=== PATIENT | male | born 1950 | race African-American/Black ===

== ENCOUNTER → 2017-04-26 | Day surgery (SDC) | payer BC, OTHER, MEDICARE ==
[~2017-04-26] MED LIST: ESOM40CA PO; HYDR-2758 PO; HYDROmorphone 2 MG/ML VIAL IV PRN; IV RINGERS,LACTATED 1000ML 1,000 ML IV SCH; LEVO150T5 PO; LEVO75TA PO; LIDOCAINE 1% PF 2 ML VIAL. ID PRN; LIDOCAINE 2% PF Vial for OR 5 ML VIAL. ONE; LOSA1TAB19 PO; MORPHINE SULFATE 2 MG/ML DISP.SYRIN. IV PRN; ONDANSETRON PF 4 MG/2 ML VIAL. IV PRN; PHEN100C PO; PROCHLORPERAZINE 10 MG/2 ML VIAL. IV PRN; PROPOFOL 20 ML IV ONE; TAMS0.4C2 PO; fentaNYL PF VIAL 100 MCG/2 ML VIAL IV PRN
--- NOTE | 2017-04-26 08:17 | PDOC1 ---
HISTORY & PHYSICAL H&P Luis Barahona [id number] 1950 04/03/2017 01:30 PM 07/08 [employer] [facility], [facility] OUR PATIENTS COME FIRST [address] [place] [address]. [phone] Patient: Luis Barahona Date of : 1950 Date: 04/03/2017 1:30 PM Visit Type: Consult This 66 year old male presents for Colitis and H/o colorectal polyp. History of Present Illness: 1. Colitis Patient had proctitis last evaluation and has been doing well. No rectal bleeding. No urgency of bowel evacuation. 2. H/o colorectal polyp Prior screening: colonoscopy. Risk Factors: h/o colon polyp. Pertinent negatives include abdominal pain, change in bowel habits, change in stool caliber, constipation, decreased appetite, diarrhea, melena, nausea, rectal bleeding, vomiting, weight gain and weight loss. Additional information: No family history of colon cancer, No family history of Crohn's/colitis and No NSAID/ASA use. INTAKE COMMENTS: Intake Comments: Nurse Note: the pt is here today to repeat a colonoscopy due to colitis, his last colonoscopy was in 2011. PROBLEM LIST: Problem Description Onset Date Essential hypertension 05/30/2015 Seizure 06/22/2009 Hypothyroidism 06/22/2009 Gastroesophageal reflux disease 06/22/2009 Diverticular disease of colon 06/22/2009 Residual hemorrhoidal skin tags 06/22/2009 Dyspepsia 06/22/2009 Physical exam 03/28/2016 Prostatism 05/30/2015 Primary osteoarthritis of both knees 12/22/2015 PAST MEDICAL/SURGICAL HISTORY (Detailed) Disease/disorder Onset Date Management Date Comments Abnormal EKG Colitis 04/03/2012 Diverticulosis GERD Hemorrhoids Hypothyroidism, primary PAD Proctitis 04/03/2012 colonoscopy with biopsy 04/03/2012 Seizure disorder DIAGNOSTICS HISTORY: Test Ordered Interpretation Result completed COLONOSCOPY AND BIOPSY 12/05/2011 abnormal Imp: Proctitis(bx) BX: Focal active colitis 04/03/2012 EGD 02/04/2013 abnormal Imp: grade ll Erosive esophagitis, 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 01/01/2017 hydrocodone 5 mg-acetaminophen 325 mg tablet take 1 tablet by oral route 2 times every day as needed for pain 01/01/2017 levothyroxine 150 mcg tablet TAKE 1 TABLET BY MOUTH ONCE DAILY FOR LOW THYROID. 03/22/2017 losartan 50 mg-hydrochlorothiazide 12.5 mg tablet TAKE [1] TABLET BY MOUTH ONCE DAILY 01/01/2017 Nexium 40 mg capsule,delayed release take 1 capsule (40MG) by oral route every day 12/05/2011 [place]-3 Fish Oil 1,000 mg-5 unit Cap take 1 Capsule by Oral route every day 01/01/2017 tamsulosin 0.4 mg capsule take 1 capsule by oral route every day 1/ 2 hour following the same meal each day Allergies: Ingredient Reaction Medication Name Comment NO KNOWN ALLERGIES REVIEW OF SYSTEMS System Neg/Pos Details Constitutional Negative Chills, fever, malaise, weight gain and weight loss. ENMT Negative Sore throat. Eyes Negative Double vision. Respiratory Negative Dyspnea and wheezing. Cardio Negative Chest pain and irregular heartbeat/palpitations. GI Positive See HPI. GI Negative Abdominal pain, change in bowel habits, change in stool caliber, constipation, decreased appetite, diarrhea, melena, nausea, see HPI, rectal bleeding and vomiting. Negative Dysuria and hematuria. Endocrine Negative Cold intolerance and heat intolerance. Psych Negative Anxiety. Integumentary Negative Hives and rash. MS Negative Joint pain. Bryson/Lymph Negative Easy bleeding and easy bruising. Allergic/Immuno Negative Animals at home and food allergies. VITAL SIGNS Time BP mm/Hg Pulse /min Resp /min Temp F Ht ft Ht in Ht cm Wt lb Wt kg BMI kg/ m2 BSA m2 O2 Sat% 1:17 PM 99 98.0 0.0 74.00 187.96 180.20 81.737 23.14 96 Time Measured by 1:17 PM Amelia Vail PHYSICAL EXAM: Exam Findings Details Constitutional Normal Well developed. Eyes Normal Conjunctiva - Right: Normal, Left: Normal. Sclera - Right: Normal, Left: Normal. Nasopharynx Normal Lips/teeth/gums - Normal. Neck Exam Normal Inspection - Normal. Thyroid gland - Normal. Respiratory Normal Inspection - Normal. Auscultation - Normal. Cardiovascular Normal Regular rate and rhythm. No murmurs, gallops, or rubs. Vascular Normal Pulses - Carotids: Normal, Femoral: Normal, Dorsalis pedis: Normal. Abdomen Normal Inspection - Normal. Anterior palpation - No guarding. No abdominal tenderness. No hepatic enlargement. No splenic enlargement. No hernia. No ascites. Skin Normal Inspection - Normal. Extremity Normal No edema. Psychiatric * Oriented to time, place, person and situation. Psychiatric Normal Appropriate mood and effect. Assessment/Plan # Detail Type Description 1. Assessment Colitis (K52.9). Patient Plan await colonoscopy result. Asymptomatic at present. 2. Assessment History of colon polyps (Z86.010). Patient Plan schedule colonoscopy at Plan Orders Further diagnostic evaluations ordered today include(s) Colonoscopy to be performed today. He is to schedule a follow-up visit with Yamileth Brower MD upon completion of work-up Electronically signed by: Yamileth Brower MD 04/03/2017 01:43 PM Document generated by: Yamileth Brower 04/03/2017 01:43 PM Oswaldo Monroy MD, Family Practice; Kiet Elizabeth MD Internal Medicine; Melany Correa MD, Internal Medicine; Rachael Brower MD Internal Medicine; Yamileth Brower MD, Gastroenterology; Andrew Crowell MD, Rheumatology, S. Quique Perry, Physical Medicine/Rehab Justo Kidd APRN ------ 10/20/17 Patient seen and examined. No change in H&P. YAMILETH BROWER MD Apr 26, 2017 08:17
[2017-04-26 09:47] VITALS: BP 129/73
== END | disposition home or self-care (01) ==
LOC: ENDOS 08:11
PROVIDERS: ATTEND Internal Medicine Gastroenterology
DX: Z09 Encounter for follow-up examination after completed treatment for conditions other than malignant neoplasm (principal); Z87.19 Personal history of other diseases of the digestive system; K64.0 First degree hemorrhoids; M19.91 Primary osteoarthritis, unspecified site; E03.9 Hypothyroidism, unspecified; Z86.69 Personal history of other diseases of the nervous system and sense organs; Z87.39 Personal history of other diseases of the musculoskeletal system and connective tissue; Z86.39 Personal history of other endocrine, nutritional and metabolic disease; Z72.89 Other problems related to lifestyle
CPT/HCPCS: 45378; J2704; J2001

== ENCOUNTER → 2017-12-17 | Day surgery (SDC) | payer BC, OTHER, MEDICARE ==
[~2017-12-17] MED LIST changes: -ESOM40CA PO; -HYDR-2758 PO; -HYDROmorphone 2 MG/ML VIAL IV PRN; -IV RINGERS,LACTATED 1000ML 1,000 ML IV SCH; -LEVO150T5 PO; -LEVO75TA PO; -LIDOCAINE 1% PF 2 ML VIAL. ID PRN; +LIDOCAINE 2% PF Vial for OR 5 ML VIAL.; -LIDOCAINE 2% PF Vial for OR 5 ML VIAL. ONE; -LOSA1TAB19 PO; -MORPHINE SULFATE 2 MG/ML DISP.SYRIN. IV PRN; -ONDANSETRON PF 4 MG/2 ML VIAL. IV PRN; -PHEN100C PO; -PROCHLORPERAZINE 10 MG/2 ML VIAL. IV PRN; +PROPOFOL 20 ML IV; -PROPOFOL 20 ML IV ONE; -TAMS0.4C2 PO; -fentaNYL PF VIAL 100 MCG/2 ML VIAL IV PRN
[2017-12-17] MEDS: IV RINGERS,LACTATED 1000ML 1,000 ML IV (07:00)
== END ==
LOC: ENDOS 09:10
DX: K21.0 Gastro-esophageal reflux disease with esophagitis (principal); K22.2 Esophageal obstruction; K44.9 Diaphragmatic hernia without obstruction or gangrene; I10 Essential (primary) hypertension; E03.9 Hypothyroidism, unspecified; I73.9 Peripheral vascular disease, unspecified; M17.0 Bilateral primary osteoarthritis of knee; F99 Mental disorder, not otherwise specified; Z79.82 Long term (current) use of aspirin; Z79.899 Other long term (current) drug therapy; Z79.891 Long term (current) use of opiate analgesic; Z98.890 Other specified postprocedural states
CPT/HCPCS: 43239; 88305; J2704

== ENCOUNTER 2019-02-10 19:52 | Emergency (ER) | payer BC, OTHER ==
[~2019-02-10] VITALS: Ht 188 cm; Wt 80.3 kg
[~2019-02-10 19:52] MED LIST changes: +ASPI-630 PO; +ESOM40CA PO; +HYDR-2761 PO; +LEVO150T5 PO; +LEVO75TA PO; -LIDOCAINE 2% PF Vial for OR 5 ML VIAL.; +LOSA1TAB19 PO; +PHEN100C PO; -PROPOFOL 20 ML IV; +TAMS0.4C2 PO
[2019-02-10 20:19] VITALS: BP 129/80
[2019-02-10] MEDS ORDERED: AMOX1TAB61 PO (21:22)
--- NOTE | 2019-02-10 21:22 | PHYS DOC ---
Past Medical History Past Medical History: GERD, Hypothyroid, Seizure (MARYCRUZ MARCELINO APRN) Past Surgical History: Other Additional Past Surgical Histo: Right hip repair (MARYCRUZ MARCELINO APRN) Alcohol Use: Heavy Drug Use: None (MARYCRUZ MARCELINO APRN) Adult General Chief Complaint Chief Complaint: ANIMAL BITE HPI HPI Patient is a 68 year old AA male who presents to the emergency department with complaints of a dog bite to his left thigh. Patient states that the animal was picked up by animal control. He denies any numbness, or tingling of the left thigh. He is unsure when his last tetanus shot was. Currently he complains of pain at the bite site that he rates a 9 out of 10 on the pain scale, there are no alleviating or exacerbating factors. ROS Patient denies any fever, cough, nausea, vomiting, diarrhea, abdominal pain, shortness of breath, or wheezing. He denies any swelling of lower extremities. All other ROS is neg unless otherwise noted in HPI. (MARYCRUZ MARCELINO APRN) Review of Systems Review of Systems See Above (MARYCRUZ MARCELINO APRN) Current Medications Current Medications Current Medications Medications (Trade) Dose Ordered Sig/Dylan Start Time Stop Time Status Last Admin Dose Admin Diphtheria/ Tetanus/Acell Pertussis (Boostrix) 0.5 ml ONCE ONCE 02/10/19 22:00 02/10/19 21:35 DC 02/10/19 21:30 0.5 ML Neomycin/ Polymyxin/ Bacitracin (Triple Antibiotic Ointment) 1 pkt 1X ONCE 02/10/19 22:00 02/10/19 21:35 DC 02/10/19 21:30 1 PKT (TANJA DASILVA DO) Allergies Allergies Allergies Coded Allergies Type Severity Reaction Last Updated Verified No Known Drug Allergies 12/17/17 No (TANJA DASILVA DO) Physical Exam Physical Exam See Above Constitutional: Well developed, well nourished, no acute distress, non-toxic appearance. [] HENT: Normocephalic, atraumatic, bilateral external ears normal, nose normal. [] Eyes: conjunctiva normal, no discharge. [] Neck: Normal range of motion, no stridor. [] Lungs & Thorax: Respirations even and unlabored, no retractions, no respiratory distress Skin: Warm, dry, no erythema, no rash; superficial puncture wound to left thigh with surrounding bruising, consistent with a bite. [] Extremities: No cyanosis, ROM intact, no edema. [] Neurologic: Alert and oriented X 3, normal motor function, normal sensory function, no focal deficits noted. [] Psychologic: Affect normal, judgement normal, mood normal. [] (MARYCRUZ MARCELINO APRN) Current Patient Data Vital Signs Vital Signs Date Time Temp Pulse Resp B/P (MAP) Pulse Ox O2 Delivery O2 Flow Rate FiO2 02/10/19 20:19 99.4 89 16 129/80 (96) 96 Room Air 99.4 (TANJA DASILVA DO) EKG EKG [] (MARYCRUZ MARCELINO APRN) Radiology/Procedures Radiology/Procedures [] (MARYCRUZ MARCELINO APRN) Course & Med Decision Making Course & Med Decision Making Pertinent Labs and Imaging studies reviewed. (See chart for details) [] (MARYCRUZ MARCELINO APRN) Dragon Disclaimer Dragon Disclaimer This electronic medical record was generated, in whole or in part, using a voice recognition dictation system. (MARYCRUZ MARCELINO APRN) Departure Departure Impression: Primary Impression: Dog bite of left thigh without complication Additional Impression: Need for Tdap vaccination Disposition: 01 HOME, SELF-CARE Condition: STABLE Referrals: DARREN GEORGE (PCP) Patient Instructions: Animal Bite, [id number] Additional Instructions: Fill the prescription and take as directed. Tylenol or ibuprofen as needed for pain. Apply ice to the area for relief of pain as well. Follow-up with your primary care doctor if symptoms persist, return to the ER if symptoms worsen or if you develop fever, redness, warmth, or drainage from the site. Scripts Amoxicillin/Potassium Clav (AUGMENTIN 875-125 TABLET) 1 Each Tablet 1 TAB PO BID for 7 Days, #14 TAB 0 Refills Prov: MARYCRUZ MARCELINO APRN 02/10/19 Attending Signature Attending Signature I have reviewed the PA/ORTHOPEDICS NURSE's note and plan of care. I was available for consultation as needed during the patient's visit in the emergency department. I agree with the clinical impression, plan, and disposition. (TANJA DASILVA DO) Problem Qualifiers Primary Impression: Dog bite of left thigh without complication Encounter type: initial encounter Qualified Codes: S71.152A - Open bite, left thigh, initial encounter; W54.0XXA - Bitten by dog, initial encounter MARYCRUZ MARCELINO APRN Feb 10, 2019 21:22 TANJA DASILVA DO Feb 11, 2019 18:16
[2019-02-10] MEDS ORDERED: NEOMY/BACITR/POLYMYXIN OINT PACKET. TP ONE (22:00)
[2019-02-10] MEDS ORDERED: DIPHTH,PERTUSS(ACELL),TET TOX 0.5 ML DISP.SYRIN. VAX IM ONE (22:00)
== END 2019-02-10 21:34 | disposition home or self-care (01) ==
LOC: ER 19:52
DX: S70.12XA Contusion of left thigh, initial encounter (principal); K21.9 Gastro-esophageal reflux disease without esophagitis; E03.9 Hypothyroidism, unspecified; F10.20 Alcohol dependence, uncomplicated; Y90.9 Presence of alcohol in blood, level not specified; W54.0XXA Bitten by dog, initial encounter; Y93.89 Activity, other specified; Y92.89 Other specified places as the place of occurrence of the external cause; Y99.8 Other external cause status
CPT/HCPCS: 90471; 90715; 99283

== ENCOUNTER 2019-08-03 13:15 | Emergency (ER) | payer BC, OTHER ==
[~2019-08-03] VITALS: Ht 185.4 cm; Wt 84.0 kg
[~2019-08-03 13:15] MED LIST changes: +AMOX1TAB61 PO
[2019-08-03 13:45] VITALS: BP 147/75
--- NOTE | 2019-08-03 14:23 | RAD ---
EXAM: HIP RIGHT 2V WITH PELVIS. HISTORY: Right hip pain after a fall. COMPARISON: None. FINDINGS: There are changes of gamma nail fixation of a right femoral intertrochanteric fracture with an antegrade intramedullary nail is fixed distally by one screw. It appears solidly healed with mild varus angulation. The joint spaces of both hips are maintained. A sclerotic focus in the right pubic body is likely a bone island. There are moderate degenerative changes of the lower lumbar spine. IMPRESSION: 1. Internally fixed chronic healed right intertrochanteric fracture. No acute fracture. Electronically signed by: Leon Mclain MD (08/03/2019 2:20 PM) [facility]
--- NOTE | 2019-08-03 15:20 | PHYS DOC ---
Past Medical History Past Medical History: GERD, Hypertension, Hypothyroid, Seizure Past Surgical History: Other Additional Past Surgical Histo: Right hip repair Alcohol Use: Heavy Drug Use: None Adult General Chief Complaint Chief Complaint: MECHANICAL FALL HPI HPI Patient is a 69 year old AA male who presents to the emergency department with complaints of right femur and right groin pain after falling on the ice last 2 days ago. Patient was sent by his primary care provider for evaluation for possible fracture. Patient denies any numbness or tingling in his right lower extremity. He denies any dysuria, hematuria, testicle pain, abdominal pain, back pain, incontinence, or increased urinary frequency. He currently rates his pain a 10 out of 10 on the pain scale, he states that the pain is so severe his leg feels weak. Patient states he has had to use a walker for ambulation at home since the fall. All other ROS is neg unless otherwise noted in HPI. Review of Systems Review of Systems See Above Allergies Allergies Allergies Coded Allergies Type Severity Reaction Last Updated Verified No Known Drug Allergies 12/17/17 No Physical Exam Physical Exam See Above Constitutional: Well developed, well nourished, no acute distress, non-toxic appearance. [] HENT: Normocephalic, atraumatic, bilateral external ears normal, nose normal. [] Eyes: PERRLA, EOMI, conjunctiva normal, no discharge. [] Neck: Normal range of motion, no stridor. [] Cardiovascular:Heart rate regular rhythm Lungs & Thorax: Respirations even and unlabored, no retractions, no respiratory distress Skin: Warm, dry, no erythema, no rash. [] Back: No tenderness Extremities: Diffuse TTP of R femur and R hip, no crepitus, no obvious deformity, no cyanosis, ROM limited due to pain, no edema. [] Neurologic: Alert and oriented X 3, no focal deficits noted. [] Psychologic: Affect normal, judgement normal, mood normal. [] Current Patient Data Vital Signs Vital Signs Date Time Temp Pulse Resp B/P (MAP) Pulse Ox O2 Delivery O2 Flow Rate FiO2 08/03/19 13:45 99.1 104 18 147/75 (99) 96 Room Air 99.1 EKG EKG [] Radiology/Procedures Radiology/Procedures PROCEDURE: CT PELVIS WO CONTRAST Study: CT pelvis without contrast INDICATION: Right groin pain after a fall. Difficulty ambulating. COMPARISON: Same day right hip radiographs. TECHNIQUE: Axial CT imaging of the pelvis performed without the use of intravenous contrast. Coronal and sagittal reformats were obtained. One or more of the following individualized dose reduction techniques were utilized for this examination: 1. Automated exposure control 2. Adjustment of the mA and/or kV according to patient size 3. Use of iterative reconstruction technique. FINDINGS: Bones: Status post right femur cephalomedullary nailing. The visualized hardware is intact. Extensive callus at the site of the remote proximal femur fracture on the right. No superimposed acute fracture is seen in this region or throughout the rest of the pelvis. Hip alignment is maintained as is alignment across the sacroiliac joints and pubic symphysis. Scattered degenerative changes to include the lower lumbar spine. Osteopenia. Scattered millimetric sclerotic foci. Soft tissues: No large hematoma or localized edema about the right hip to suggest an occult osseous injury. Expected asymmetric atrophy of the right hip musculature relative to the left in the setting of the right femur surgical changes. The left common hamstring origin is prominent in size with heterotopic bone formation and enthesophyte formation suggesting long-standing tendinopathy. IMPRESSION: 1. No acute fracture is seen at the right hip or elsewhere throughout the pelvis. Status post right femur cephalomedullary nailing without complication involving the visualized portion of the construct. 2. Scattered millimetric sclerotic foci favored bone islands in the absence of a known malignancy. 3. Osteopenia and scattered degenerative changes.[] PROCEDURE: HIP RIGHT 2V WITH PELVIS EXAM: HIP RIGHT 2V WITH PELVIS. HISTORY: Right hip pain after a fall. COMPARISON: None. FINDINGS: There are changes of gamma nail fixation of a right femoral intertrochanteric fracture with an antegrade intramedullary nail is fixed distally by one screw. It appears solidly healed with mild varus angulation. The joint spaces of both hips are maintained. A sclerotic focus in the right pubic body is likely a bone island. There are moderate degenerative changes of the lower lumbar spine. IMPRESSION: 1. Internally fixed chronic healed right intertrochanteric fracture. No acute fracture. Course & Med Decision Making Course & Med Decision Making Pertinent Labs and Imaging studies reviewed. (See chart for details) [] Dragon Disclaimer Dragon Disclaimer This electronic medical record was generated, in whole or in part, using a voice recognition dictation system. Departure Departure Impression: Primary Impression: Right hip pain Additional Impression: Fall from slipping on ice Disposition: 01 HOME, SELF-CARE Condition: STABLE Referrals: DARREN GEORGE (PCP) Patient Instructions: Fall Prevention and Home Safety, Irtu-il-Cjki, Hip Pain Additional Instructions: Take your home pain medication as prescribed. Recommend application of heat or ice as needed for comfort. Activity as tolerated, follow up with your primary care doctor this week, return to the ER if symptoms worsen. Problem Qualifiers Additional Impression: Fall from slipping on ice Encounter type: initial encounter Qualified Codes: W00.9XXA - Unspecified fall due to ice and snow, initial encounter MARYCRUZ MARCELINO APRN Aug 03, 2019 15:20
--- NOTE | 2019-08-03 16:42 | RAD ---
Study: CT pelvis without contrast INDICATION: Right groin pain after a fall. Difficulty ambulating. COMPARISON: Same day right hip radiographs. TECHNIQUE: Axial CT imaging of the pelvis performed without the use of intravenous contrast. Coronal and sagittal reformats were obtained. One or more of the following individualized dose reduction techniques were utilized for this examination: 1. Automated exposure control 2. Adjustment of the mA and/or kV according to patient size 3. Use of iterative reconstruction technique. FINDINGS: Bones: Status post right femur cephalomedullary nailing. The visualized hardware is intact. Extensive callus at the site of the remote proximal femur fracture on the right. No superimposed acute fracture is seen in this region or throughout the rest of the pelvis. Hip alignment is maintained as is alignment across the sacroiliac joints and pubic symphysis. Scattered degenerative changes to include the lower lumbar spine. Osteopenia. Scattered millimetric sclerotic foci. Soft tissues: No large hematoma or localized edema about the right hip to suggest an occult osseous injury. Expected asymmetric atrophy of the right hip musculature relative to the left in the setting of the right femur surgical changes. The left common hamstring origin is prominent in size with heterotopic bone formation and enthesophyte formation suggesting long-standing tendinopathy. IMPRESSION: 1. No acute fracture is seen at the right hip or elsewhere throughout the pelvis. Status post right femur cephalomedullary nailing without complication involving the visualized portion of the construct. 2. Scattered millimetric sclerotic foci favored bone islands in the absence of a known malignancy. 3. Osteopenia and scattered degenerative changes. Electronically signed by: SIA FISH MD (08/03/2019 4:39 PM) [id number]
== END 2019-08-03 17:02 | disposition home or self-care (01) ==
LOC: ER 13:15
DX: S72.144A Nondisplaced intertrochanteric fracture of right femur, initial encounter for closed fracture (principal); M25.551 Pain in right hip; M79.651 Pain in right thigh; R10.31 Right lower quadrant pain; K21.9 Gastro-esophageal reflux disease without esophagitis; I10 Essential (primary) hypertension; E03.9 Hypothyroidism, unspecified; F10.10 Alcohol abuse, uncomplicated; Z98.890 Other specified postprocedural states; W00.0XXA Fall on same level due to ice and snow, initial encounter; Y93.89 Activity, other specified; Y92.89 Other specified places as the place of occurrence of the external cause; Y99.8 Other external cause status
CPT/HCPCS: 72192; 73502; 99284